=== PATIENT | male | born 1990 | race African-American/Black ===

== ENCOUNTER 2023-09-17 09:58 | Emergency (ER) | payer SELFPAY ==
[~2023-09-17] VITALS: Ht 165.1 cm; Wt 70.6 kg
[2023-09-17] MEDS ORDERED: DOXY-286 PO (13:58)
[2023-09-17 14:16] LABS: Urine Bacteria None Seen /hpf (None Seen)
[2023-09-17 14:29] LABS: Urine Blood Negative /uL (Negative); Urine Clarity Clear (Clear); Urine Color Yellow (Yellow); Urine Mucus FEW (None Seen); Urine Protein, UAD TRACE (Negative); Urine Specific Gravity 1.025 (1.001-1.035); Urine Urobilinogen Normal (Negative); Urine WBC 147 /hpf (0 - 3); Urine pH 6.5 (5.0-9.0)
[2023-09-17] MEDS: cefTRIAXone SOD 500 MG VL IM ONE (14:53)
[2023-09-17] MEDS: LIDOCAINE 1% HCL (LOCAL ANESTH.) INJ 20ML MDV IJ ONE (14:53)
[2023-09-17 15:35] VITALS: BP 130/82; PULSE 73; RESP 16; TEMP 98; O2SAT 98
[2023-09-18 07:06] LABS: RPR Non Reactive (Non Reactive)
[2023-09-18 17:06] LABS: Chlamydia Trachomatis, NAA Negative (Negative); Neisseria gonorrhoeae, NAA Positive (Negative)
== END 2023-09-17 15:55 | disposition home or self-care (01) ==
LOC: ER 10:11
DX: A54.9 Gonococcal infection, unspecified (principal); M79.672 Pain in left foot; Z79.899 Other long term (current) drug therapy
CPT/HCPCS: 81001; 86592; 86703; 87491; 87591; 96372; 99283; J0696; J2001